=== PATIENT | female | born 1950 | race Caucasian/White ===

== ENCOUNTER 2022-09-29 19:11 | Emergency (ER) | payer OTHER ==
[~2022-09-29] VITALS: Ht 154.9 cm; Wt 53.1 kg
[2022-09-29 19:48] VITALS: BP 169/87
== END 2022-09-29 20:00 | disposition left against medical advice (07) ==
LOC: ER 19:11
DX: R42 Dizziness and giddiness (principal); R53.1 Weakness
CPT/HCPCS: 99281